=== PATIENT | female | born 1985 | race Caucasian/White ===

== ENCOUNTER → 2022-06-13 | Outpatient (CLI) | payer OTHER | LOC: MHCPAIN 08:31 | DX: M47.812 Spondylosis without myelopathy or radiculopathy, cervical region (principal); M79.18 Myalgia, other site; M54.12 Radiculopathy, cervical region | CPT/HCPCS: G0463 ==

== ENCOUNTER → 2022-06-25 | Outpatient (CLI) | payer OTHER | LOC: MHCPAIN 09:43 | DX: M47.812 Spondylosis without myelopathy or radiculopathy, cervical region (principal); M54.81 Occipital neuralgia; M54.12 Radiculopathy, cervical region; M25.512 Pain in left shoulder | CPT/HCPCS: J1040; J1100; Q9967 ==

== ENCOUNTER → 2022-11-14 | Outpatient (CLI) | payer OTHER | LOC: MHCPAIN 09:22 | DX: M47.812 Spondylosis without myelopathy or radiculopathy, cervical region (principal); M79.18 Myalgia, other site; M54.12 Radiculopathy, cervical region | CPT/HCPCS: G0463 ==